=== PATIENT | female | born 1970 | race Caucasian/White ===

== ENCOUNTER 2021-08-17 05:55 | Emergency (ER) | payer MEDICAID ==
[~2021-08-17] VITALS: Ht 170.2 cm; Wt 63.6 kg
[~2021-08-17 05:55] MED LIST: NAPR-56 PO; NORCO10T PO
[2021-08-17 06:16] VITALS: BP 121/65
[2021-08-17] MEDS ORDERED: rabies immune globulin/PF 150 unit/ml inj IMVAC STA (06:32)
[2021-08-17] MEDS ORDERED: TETanus/Pertussis (Acell)/Diphther VAC/PF (Tdap-Adult) 0.5ml syringe IMVAC ONE (06:35)
[2021-08-17] MEDS ORDERED: bacitracin 15gm ointment TP ONE (06:35)
[2021-08-17] MEDS ORDERED: rabies vaccine (PCEC)/PF 2.5 unit kit IMVAC ONE (06:35)
[2021-08-17] MEDS ORDERED: AMOX-580 PO (08:08)
[2021-08-17] MEDS ORDERED: amox tr/potassium clavulanate 875/125mg TAB PO ONE (08:10)
== END 2021-08-17 08:24 | disposition home or self-care (01) ==
LOC: ER 05:55
DX: S81.802A Unspecified open wound, left lower leg, initial encounter (principal); Z87.442 Personal history of urinary calculi; Z56.0 Unemployment, unspecified; Z79.2 Long term (current) use of antibiotics; Z79.899 Other long term (current) drug therapy; Z20.3 Contact with and (suspected) exposure to rabies; W54.0XXA Bitten by dog, initial encounter; Y93.89 Activity, other specified; Y92.89 Other specified places as the place of occurrence of the external cause; Y99.8 Other external cause status
CPT/HCPCS: 73590; 90376; 90471; 90472; 90675; 90715; 96372; 99284

== ENCOUNTER 2021-08-20 06:31 | Emergency (ER) | payer MEDICAID ==
[~2021-08-20] VITALS: Ht 170.2 cm; Wt 70.0 kg
[~2021-08-20 06:31] MED LIST changes: +AMOX-580 PO
[2021-08-20 06:38] VITALS: BP 130/70
[2021-08-20] MEDS ORDERED: rabies vaccine (PCEC)/PF 2.5 unit kit IMVAC ONE (07:15)
--- NOTE | 2021-08-20 07:27 | NUR ---
SEEN AND TREATED IN TRIAGE
== END 2021-08-20 08:00 | disposition home or self-care (01) ==
LOC: ER 06:31
DX: S71.112D Laceration without foreign body, left thigh, subsequent encounter (principal); Z79.2 Long term (current) use of antibiotics; Z79.899 Other long term (current) drug therapy; Z87.442 Personal history of urinary calculi; Z56.0 Unemployment, unspecified; W54.0XXD Bitten by dog, subsequent encounter
CPT/HCPCS: 90471; 90675; 99281

== ENCOUNTER 2021-10-10 05:44 | Emergency (ER) | payer MEDICAID ==
[~2021-10-10] VITALS: Ht 170.2 cm; Wt 68.2 kg
[~2021-10-10 05:44] MED LIST changes: -AMOX-580 PO
--- NOTE | 2021-10-10 06:25 | NUR ---
REPORT RECEIVED FROM MICAELA RN
[2021-10-10] MEDS ORDERED: neomy sulf/polymyx B sulf/HC 10ml otic suspension RIGHT EAR ONE (07:20)
[2021-10-10] MEDS ORDERED: HYDROcodone/acetaminophen 10/325mg tab PO ONE (07:20)
[2021-10-10] MEDS ORDERED: sulfamethoxazole/trimethoprim DS (800/160mg) tablet PO ONE (07:20)
[2021-10-10] MEDS ORDERED: amox tr/potassium clavulanate 875/125mg TAB PO ONE (07:20)
[2021-10-10] MEDS ORDERED: AMOX-117 PO (07:23)
[2021-10-10] MEDS ORDERED: SULF1TAB49 PO (07:23)
[2021-10-10] MEDS ORDERED: NEOM10DR45 LEFT EAR (07:23)
[2021-10-10 07:34] VITALS: BP 125/67
== END 2021-10-10 08:01 | disposition home or self-care (01) ==
LOC: ER 05:44
DX: H60.91 Unspecified otitis externa, right ear (principal); H60.11 Cellulitis of right external ear; F17.200 Nicotine dependence, unspecified, uncomplicated; Z87.440 Personal history of urinary (tract) infections; Z72.89 Other problems related to lifestyle; Z56.0 Unemployment, unspecified; Z79.2 Long term (current) use of antibiotics; Z79.899 Other long term (current) drug therapy
CPT/HCPCS: 99284

== ENCOUNTER 2022-01-28 03:20 | Emergency (ER) | payer MEDICAID ==
[~2022-01-28] VITALS: Ht 170.2 cm; Wt 65.9 kg
[2022-01-28] MEDS ORDERED: AMOX-580 PO (03:54)
[2022-01-28] MEDS ORDERED: ketorolac trometh. 30mg/ml inj. IM ONE (03:55)
[2022-01-28] MEDS ORDERED: neomy sulf/polymyx B sulf/HC 10ml otic suspension RIGHT EAR ONE (03:55)
[2022-01-28] MEDS ORDERED: amox tr/potassium clavulanate 875/125mg TAB PO ONE (03:55)
[2022-01-28 04:19] VITALS: BP 138/78
== END 2022-01-28 04:22 | disposition home or self-care (01) ==
LOC: ER 03:20
DX: H60.91 Unspecified otitis externa, right ear (principal); H60.11 Cellulitis of right external ear; Z87.442 Personal history of urinary calculi; Z72.89 Other problems related to lifestyle; Z56.0 Unemployment, unspecified; Z79.2 Long term (current) use of antibiotics; Z79.899 Other long term (current) drug therapy
CPT/HCPCS: 96372; 99283; J1885

== ENCOUNTER 2022-05-21 02:09 | Emergency (ER) | payer MEDICAID ==
[~2022-05-21] VITALS: Ht 170.2 cm; Wt 67.0 kg
[2022-05-21 02:23] VITALS: BP 135/86
== END 2022-05-21 05:13 | disposition left against medical advice (07) ==
LOC: ER 02:10
DX: J02.9 Acute pharyngitis, unspecified (principal); Z53.21 Procedure and treatment not carried out due to patient leaving prior to being seen by health care provider
CPT/HCPCS: 93005

== ENCOUNTER 2022-07-20 05:41 | Emergency (ER) | payer MEDICAID ==
[~2022-07-20] VITALS: Ht 170.2 cm; Wt 68.2 kg
[2022-07-20 06:06] VITALS: BP 133/62
[2022-07-21] MEDS ORDERED: AMOX-117 PO (07:25)
== END 2022-07-20 11:19 | disposition left against medical advice (07) ==
LOC: ER 05:42
DX: R05.9 Cough, unspecified (principal); Z53.21 Procedure and treatment not carried out due to patient leaving prior to being seen by health care provider
CPT/HCPCS: 71046

== ENCOUNTER 2022-07-21 03:36 | Emergency (ER) | payer MEDICAID ==
[~2022-07-21] VITALS: Ht 170.2 cm; Wt 68.2 kg
[2022-07-21] MEDS ORDERED: AMOX-117 PO (07:25)
[2022-07-21 07:44] VITALS: BP 138/85
== END 2022-07-21 07:46 | disposition home or self-care (01) ==
LOC: ER 03:37
DX: J02.0 Streptococcal pharyngitis (principal); R05.9 Cough, unspecified; F17.200 Nicotine dependence, unspecified, uncomplicated; Z87.442 Personal history of urinary calculi; Z72.89 Other problems related to lifestyle; Z56.0 Unemployment, unspecified; Z79.2 Long term (current) use of antibiotics; Z79.899 Other long term (current) drug therapy
CPT/HCPCS: 87880; 99283

== ENCOUNTER 2023-07-30 05:43 | Emergency (ER) | payer MEDICAID ==
[~2023-07-30] VITALS: Ht 170.2 cm; Wt 71.0 kg
[2023-07-30 05:47] VITALS: TEMP 99.6
[2023-07-30] MEDS ORDERED: LIDOCAINE 1%/EPI 1:100,000 inj. 10 ML multi-dose vial IJ ONE (06:20)
[2023-07-30] MEDS ORDERED: ibuprofen tablet 400 MG TABLET PO ONE (07:15)
[2023-07-30] MEDS ORDERED: CefTRIAXone/D5W-Rocephin 1gm 50 ML IV ONE (07:15)
[2023-07-30] MEDS ORDERED: HYDROcodone/acetaminophen 5mg/325mg tablet PO ONE (07:15)
[2023-07-30] MEDS ORDERED: AMOX-117 PO (09:05)
[2023-07-30] MEDS ORDERED: SULF1TAB49 PO (09:05)
[2023-07-30 09:30] VITALS: BP 105/68; PULSE 58; RESP 18; O2SAT 98
== END 2023-07-30 09:33 | disposition home or self-care (01) ==
LOC: ER 05:44
DX: H00.031 Abscess of right upper eyelid (principal); F17.200 Nicotine dependence, unspecified, uncomplicated; Z79.2 Long term (current) use of antibiotics; Z79.1 Long term (current) use of non-steroidal anti-inflammatories (NSAID)
CPT/HCPCS: 87070; 87077; 87186; 96365; 99284; J0696

== ENCOUNTER 2023-09-22 07:29 | Emergency (ER) | payer MEDICAID ==
[~2023-09-22] VITALS: Ht 170.2 cm; Wt 68.2 kg
[2023-09-22 07:31] VITALS: TEMP 97.4
[2023-09-22] MEDS ORDERED: IBUP-1984 PO (09:31)
[2023-09-22] MEDS ORDERED: AMOX-117 PO (09:31)
[2023-09-22] MEDS ORDERED: PRED20TA PO (09:31)
[2023-09-22] MEDS: amox tr/potassium clavulanate 875/125mg TAB PO ONE (09:43)
[2023-09-22] MEDS: predniSONE 20 mg tablet PO ONE (09:43)
[2023-09-22 09:46] VITALS: BP 121/77; PULSE 67; RESP 18; O2SAT 92
[2023-09-22] MEDS: HYDROcodone/acetaminophen 5mg/325mg tablet PO ONE (09:46)
== END 2023-09-22 10:07 | disposition home or self-care (01) ==
LOC: ER 07:29
DX: K08.89 Other specified disorders of teeth and supporting structures (principal); R22.0 Localized swelling, mass and lump, head; Z87.442 Personal history of urinary calculi; Z79.899 Other long term (current) drug therapy
CPT/HCPCS: 99284; J7512

== ENCOUNTER 2023-11-28 05:31 | Emergency (ER) | payer MEDICAID ==
[~2023-11-28] VITALS: Ht 170.2 cm; Wt 73.8 kg
[2023-11-28] MEDS ORDERED: SULF1TAB49 PO (06:40)
[2023-11-28] MEDS ORDERED: CEPH-585 PO (06:40)
[2023-11-28 06:54] VITALS: BP 125/60; PULSE 70; RESP 14; TEMP 99.3; O2SAT 95
== END 2023-11-28 06:58 | disposition home or self-care (01) ==
LOC: ER 05:32
DX: L03.112 Cellulitis of left axilla (principal); Z72.89 Other problems related to lifestyle; Z56.9 Unspecified problems related to employment; Z79.2 Long term (current) use of antibiotics; Z79.899 Other long term (current) drug therapy
CPT/HCPCS: 99283

== ENCOUNTER 2025-01-25 13:59 | Outpatient (CLI) | payer MEDICAID ==
--- NOTE | 2025-01-25 16:01 | RADIOLOGY REPORT ---
CLINICAL HISTORY: Pain. Osteoarthritis. Hallux valgus. TECHNIQUE: Multi sequence multi planar MRI images of the left midfoot and forefoot were obtained wit hout IV contrast. COMPARISON: None FINDINGS: There is artifact from postsurgical changes involving the 1st tarsometatarsal joint, likel y arthrodesis. There is also artifact in the 2nd metatarsal and 2nd digit phalanges from surgical kimani dware. Artifact from the surgical hardware limits evaluation of adjacent structures. There is medial subluxation of the proximal phalanx of the 1st digit up to 0.5 cm with respect to the 1st metatarsal head. Probable moderate arthritic changes of the 1st and 2nd MTP joints. There are sequelae of postsu rgical changes along the medial aspect of the 1st MTP joint. There appears to be slight lateral sublu xation of the 2nd metatarsal base with respect to the medial cuneiform, although artifact limits eval uation. Moderate subcutaneous edema along the dorsal aspect of the midfoot and forefoot is nonspecifi c, may be infectious or inflammatory in nature or due to chronic venous stasis changes. No organized fluid collection. No significant abnormality of the visualized musculature. Visualized tendons appear intact. IMPRESSION: 1. Sequelae of postsurgical changes as described above, with associated artifact, which limits evalua tion of adjacent structures. 2. Medial subluxation of the proximal phalanx of the 1st digit with respect to the 1st metatarsal hea d. 3. Suspected slight lateral subluxation of the 2nd metatarsal base with respect to the medial cuneifo rm, although limited evaluation due to artifact. Correlation with clinical findings and radiographs r ecommended. 4. Arthritic changes of the 1st and 2nd MTP joints. 5. Additional findings as detailed above.
== END 2025-01-25 23:59 | disposition home or self-care (01) ==
LOC: MRI02 13:59
PROVIDERS: ATTEND Podiatrist Foot & Ankle Surgery
DX: S93.145A Subluxation of metatarsophalangeal joint of left lesser toe(s), initial encounter (principal); M79.671 Pain in right foot; M79.672 Pain in left foot; M19.071 Primary osteoarthritis, right ankle and foot; M19.072 Primary osteoarthritis, left ankle and foot; M20.11 Hallux valgus (acquired), right foot; M20.12 Hallux valgus (acquired), left foot; M20.41 Other hammer toe(s) (acquired), right foot; M21.6X1 Other acquired deformities of right foot; M20.42 Other hammer toe(s) (acquired), left foot; M21.6X2 Other acquired deformities of left foot; M25.374 Other instability, right foot; M25.375 Other instability, left foot; S93.106A Unspecified dislocation of unspecified toe(s), initial encounter
CPT/HCPCS: 73718